=== PATIENT | male | born 1970 | race Caucasian/White ===

== ENCOUNTER 2020-10-09 08:03 | Outpatient (CLI) | payer OTHER, SELFPAY ==
[2020-10-09 08:29] LABS: Basophils Absolute Auto 0.1 K/mm3 (0.0-0.1); Basophils Percent Auto 0.7 % (0.2-1.2); Eosinophils Absolute Auto 0.1 K/mm3 (0-0.3); Eosinophils Percent Auto 1.5 % (0-4.4); Hematocrit 40.6 % (42.0-52.0); Immature Granulocyte Absolute 0.03 K/mm3 (0.00-0.031); Immature Granulocyte Percent A 0.4 % (0-0.5); Lymphocytes Absolute Auto 1.86 K/mm3 (0.9-3.2); Lymphocytes Percent Auto 27.4 % (18.3-44.2); Mean Corpuscular Hemoglobin 28.6 pg (26-34); Mean Corpuscular Volume 89.2 fl (80-100); Mean Platelet Volume 8.8 fl (7.4-10.4); Monocytes Absolute Auto 0.6 K/mm3 (0.1-0.6); Monocytes Percent Auto 8.7 % (2.6-8.5); Neutrophils Absolute Auto 4.2 K/mm3 (1.3-6.7); Neutrophils Percent Auto 61.3 % (45.5-73.1); Platelet Count Result 263 k/mm3 (150-375); Red Blood Count 4.55 M/mm3 (4.6-6.20); Red Cell Distribution Width 13.1 % (11.5-14.5); White Blood Count 6.8 K/mm3 (4.5-10.0)
--- NOTE | 2020-10-09 08:40 | ECG_ITS ---
Measurements Intervals [place] Rate: 77 P: 56 IN: 159 QRS: 5 QRSD: 100 T: 60 QT: 377 QTc: 428 Interpretive Statements SINUS RHYTHM POSSIBLE LEFT ATRIAL ENLARGEMENT INCOMPLETE RIGHT BUNDLE BRANCH BLOCK BORDERLINE ECG Electronically Signed On 10-09-2020 8:58:55 CDT by Kenneth Segovia D.O.
[2020-10-09 08:41] LABS: Prothrombin Time 12.8 Seconds (11.1-14.7)
[2020-10-09 08:43] LABS: Partial Thromboplastin Time 28.5 SECONDS (22.3-36.8)
== END 2020-10-09 08:04 | disposition home or self-care (01) ==
LOC: ANHLAB 08:09
PROVIDERS: Visit Provider Family Medicine Sports Medicine
DX: Z01.818 Encounter for other preprocedural examination (principal); M54.6 Pain in thoracic spine
CPT/HCPCS: 36415; 85025; 85610; 85730; 93005